=== PATIENT | female | born 1990 | race Caucasian/White ===

== ENCOUNTER 2021-11-04 05:08 | Inpatient (IN) | payer OTHER, SELFPAY ==
[2021-11-04] VITALS (130 sets, daily range): BP systolic 57–158; BP diastolic 43–107; PULSE 58–91; RESP 18; TEMP 36.1–36.6; O2SAT 99–100; BMI 39.3
--- NOTE | 2021-11-04 05:44 | LDADM ---
This patient, Jessica White, was admitted to Labor/Delivery/Recovery 104 on 11/04/21 at 05:08. Plans for labor, pain management and were discussed with patient. Patient/family oriented to hospital policies and general routines including ID bracelet, bed and alarms, visiting hours, pain management, procedures, bathroom and other care routines, personal items, smoking policy, room service/diet and guest tray routines, security routines, and visiting hours. Patient/Family are encouraged to report perceived risks to care and to ask questions if they do not understand what they are told or what they should do. See OBIX for further documentation.
[2021-11-04 06:10] LABS: Basophils Percent Auto 0.5 % (0.2-1.2); Eosinophils Percent Auto 0.4 % (0-4.4); Hematocrit 36.7 % (37.0-47.0); Immature Granulocyte Absolute 0.06 K/mm3 (0.00-0.031); Immature Granulocyte Percent A 0.7 % (0-0.5); Lymphocytes Absolute Auto 2.53 K/mm3 (0.9-3.2); Lymphocytes Percent Auto 30.1 % (18.3-44.2); Mean Corpuscular HGB Conc 35.4 g/dl (32-36); Mean Corpuscular Hemoglobin 32.7 pg (26-34); Mean Corpuscular Volume 92.2 fl (80-100); Mean Platelet Volume 10.5 fl (7.4-10.4); Monocytes Absolute Auto 0.8 K/mm3 (0.1-0.6); Monocytes Percent Auto 8.9 % (2.6-8.5); Neutrophils Percent Auto 59.4 % (45.5-73.1); Platelet Count Result 161 k/mm3 (150-375); Red Blood Count 3.98 M/mm3 (4.2-5.4); Red Cell Distribution Width 13.4 % (11.5-14.5); White Blood Count 8.4 K/mm3 (4.5-10.0)
[2021-11-04] MEDS: LACTATED RINGERS 1,000 ML 125 ML IV CONT ×3 (06:11→14:41)
[2021-11-04] MEDS: OXYTOCIN 30 UNITS/NS 500 ML 30 UNITS/500 ML BAG IV CONT (06:11)
--- NOTE | 2021-11-04 08:46 | WPDOBADMIT ---
Obstetrics - Admit Note Admission Note: record reviewed. Additions to the history and/or subsequent changes in the physical findings follow. 31 y/o at 39 5/7 here for induction of labor. GBS neg. AVSS NST reactive TOCO: contractions every 3-5 min ABD soft, nontender, gravid, vertex EXT nontender Cervix 2-3/50/-2. AROM with clear fluid. A: IUP at term with favorable cervix, desiring induction of labor. P: Oxytocin. Anticipate .
--- NOTE | 2021-11-04 09:01 | WPDANESEPP ---
Anes - Eval Pre Procedure Procedure: labor epidural Date/Time: 11/04/21 09:01 Surgeon: irena Preop Diagnosis: pain during labor Pre Op Diagnosis: Induction Patient Data Age: 31 Gender: F Height: 1.57 m Weight: 97.5 kg Last Vital Signs Temp 36.5 C 11/04/21 08:45 Pulse 69 11/04/21 09:00 BP 133/73 11/04/21 09:00 O2 Del Method Room Air 11/04/21 05:43 Allergies Allergy/AdvReac Type Severity Reaction Status Date / Time amoxicillin Allergy Unknown Verified 02/28/17 14:12 Penicillins Allergy Unknown Verified 02/28/17 14:12 hydrocodone AdvReac Unknown Nausea and Verified 06/02/19 12:10 Vomiting Home Medications Medication Instructions Recorded Confirmed Type vit no.95-ferrous 1 tablet PO DAILY 05/08/19 10/06/21 History fumarate 28 mg-folic acid 800 mcg tablet () cetirizine 10 mg tablet (Zyrtec) 10 mg PO DAILY 10/06/21 10/06/21 History fluoxetine 20 mg tablet 20 mg PO DAILY 10/06/21 10/06/21 History Laboratory Tests 11/04/21 11/04/21 05:58 05:58 WBC 8.4 K/mm3 K/mm3 (4.5-10.0) RBC 3.98 M/mm3 L M/mm3 (4.2-5.4) Hgb 13.0 g/dL g/dL (12.0-15.0) Hct 36.7 % L % (37.0-47.0) MCV 92.2 fl fl (80-100) MCH 32.7 pg pg (26-34) MCHC 35.4 g/dl g/dl (32-36) RDW 13.4 % % (11.5-14.5) Plt Count 161 k/mm3 k/mm3 (150-375) MPV 10.5 fl H fl (7.4-10.4) Immature Gran % (Auto) 0.7 % H % (0-0.5) Neut % (Auto) 59.4 % % (45.5-73.1) Lymph % (Auto) 30.1 % % (18.3-44.2) [place] % (Auto) 8.9 % H % (2.6-8.5) Eos % (Auto) 0.4 % % (0-4.4) Baso % (Auto) 0.5 % % (0.2-1.2) Lymph # (Auto) 2.53 K/mm3 K/mm3 (0.9-3.2) [place] # (Auto) 0.8 K/mm3 H K/mm3 (0.1-0.6) Eos # (Auto) 0.0 K/mm3 K/mm3 (0-0.3) Baso # (Auto) 0.0 K/mm3 K/mm3 (0.0-0.1) Abs Immat Gran (auto) 0.06 K/mm3 H K/mm3 (0.00-0.031) Absolute Neuts (auto) 5.0 K/mm3 K/mm3 (1.3-6.7) Absolute Nucleated RBC 0.0 K/mm3 K/mm3 (0.0-0.012) Nucleated RBC % 0.0 % % (0.0-0.2) RPR Pending Patient hx anesthesia problems: none Family hx anesthesia problems: none Results Review: All pre-operative results and documents have been reviewed as part of the pre-operative evaluation. [facility] Past Medical History Medical History Anxiety Morbid obesity Sphincter of Oddi dysfunction Family History Family History Grandparent Family history of cardiovascular disease Diabetes mellitus Family history of type 1 diabetes mellitus, Onset Age: 74 Family history of type 2 diabetes mellitus Hypertension Sibling Asthma Father Family history of type 2 diabetes mellitus Diabetes mellitus Heart attack Hypertension Mother Diabetes mellitus Social History Social History Smoking status: Never smoker Second hand tobacco smoke exposure: No Alcohol intake: never Substance use: never Gender identity (if verbalized by the patient): Female Spiritual care concerns: No Exam Day of Procedure 11/04/21 09:01
[2021-11-04] MEDS: fentaNYL CITRATE INJ (*CRX) 100 MCG/2 ML VIAL 50 MCG IV PUSH (11:08)
[2021-11-04 11:19] LABS: Rapid Plasma Reagin Non-Reactive (NonReactive)
[2021-11-04] MEDS: ONDANSETRON INJ 4 MG/2 ML VIAL IV PUSH (13:26)
--- NOTE | 2021-11-04 17:19 | PM.OBPNLAB ---
Pain Control Date/time seen: 11/04/21 17:19 Comments: Pain OK with epidural. Pelvic Exam Dilation (cm): 10 station: +2 Contractions Contraction frequency: 3 Contraction pattern: Regular Status status: Category l Assessment and Plan Pitocin rate (mU/min): 20 Comments: Plan to begin pushing.
--- NOTE | 2021-11-04 17:50 | PM.OBPRVD ---
OB - Delivery Note Procedure Delivery date: 11/04/21 Procedure: Induction of labor with Induction method: Per Pitocin Protocol Delivery augmentation: Rupture of Membranes Delivery monitor: External FHT, External Uterine and Internal Uterine Route of delivery: Laceration Description: Perineal - 2nd Degree Delivery repair: vicryl (3-0) Specimen: Yes (Cord blood) Quantitative Blood Loss (ml): 320 Anesthesia type: Epidural Disposition: PACU Complications: None Narrative: 31 y/o at 39 5/7 weeks gestation who presented to the hospital for induction of labor. Oxytocin was administered intravenously. Amniotomy was performed with return of clear fluid. She received an epidural for pain control. Her labor progressed and her cervix dilated completely. She pushed with good effort and delivered the 's head to the perineum, followed by the body. The nose and mouth were bulb suctioned. After a delay, the cord was clamped and cut. The was handed off the field. Cord blood was collected. The placenta delivered spontaneously and was grossly normal in appearance. The usual 3 vessel cord was noted. A second degree midline perineal laceration was sustained. This was reapproximated using 3 0 Vicryl in the usual layered fashion. Excellent hemostasis resulted as did excellent reapproximation of the normal anatomy. Needle and instrument counts were correct. The patient was taken to recovery room in stable condition. The infant went to the nursery in stable condition. I was present and scrubbed for the entire delivery. Baby Date of : 11/04/21 Time of : 17:29 Weeks of gestation at delivery: 39 Infant gender: Female Weight (pounds): 8 Weight (ounces): 14 presentation: vertex position: Left Occiput Anterior Placenta delivery description: Spontaneous and Normal Configuration Cord Vessel Description: 3 Vessels score one minute: 8 score five minutes: 9
--- NOTE | 2021-11-04 17:52 | P.DS_ITS ---
DS: Admitting Diagnosis Discharge Date 11/06/21 Admitting Diagnosis IUP at term with favorable cervix DS: Discharge Diagnosis Discharge Diagnosis (1) (normal spontaneous vaginal delivery): Code(s): O80 - Encounter for full-term uncomplicated delivery Status: Acute OB - DS: Summary OB Procedures : None OB Procedures Intrapartum: Spontaneous Vag Delivery OB Procedures: : None Peripartum Data Infant Delivery Method: Natural Vaginal Laceration Description: Perineal - 2nd Degree Time Spent with Patient Time attestation: Total time spent providing and/or coordinating discharge services: Exam Psych: Other: AVSS ABD soft, nontender, fundus firm EXT nontender DS: Data Data Completed and Pending Labs on day of discharge: Labs from last 24 hours 11/04/21 11/04/21 11/04/21 05:58 05:58 05:58 WBC 8.4 RBC 3.98 L Hgb 13.0 Hct 36.7 L MCV 92.2 MCH 32.7 MCHC 35.4 RDW 13.4 Plt Count 161 MPV 10.5 H Immature Gran % (Auto) 0.7 H Neut % (Auto) 59.4 Lymph % (Auto) 30.1 Elbert % (Auto) 8.9 H Eos % (Auto) 0.4 Baso % (Auto) 0.5 Lymph # (Auto) 2.53 Elbert # (Auto) 0.8 H Eos # (Auto) 0.0 Baso # (Auto) 0.0 Abs Immat Gran (auto) 0.06 H Absolute Neuts (auto) 5.0 Absolute Nucleated RBC 0.0 Nucleated RBC % 0.0 RPR Non-reactive Blood Type A Positive Antibody Screen Negative Discharge Plan Discharge Attending physician on discharge: Gavin Loo Discharging Clinician: Gavin Loo Patient Disposition: Home, Self-Care Activity: pelvic rest Diet: regular Discharge Instructions: Call or return if temperature above 100.4? F, increased abdominal pain, increased vaginal bleeding or any new problems. Stand Alone Forms: General Discharge Information Follow-up/Referrals: Gavin Loo MD [Physician] - 6 Weeks Discharge Medications: New ibuprofen 600 mg tablet 600 mg PO Q6H PRN (Reason: cramps) Qty: 30 0RF Continued cetirizine [Zyrtec] 10 mg Tablet 10 mg PO DAILY fluoxetine 20 mg Tablet 20 mg PO DAILY PNV cmb#95-ferrous fumarate-FA [] 28 mg iron- 800 mcg Tablet 1 tablet PO DAILY Date of admission: 11/04/21 05:08 Primary Care Provider: PHYSICIAN,[employer] Admitting Provider: Gavin Loo Attending physician on admission: Gavin Loo Condition: Stable
[2021-11-04] MEDS: OXYTOCIN 30 UNITS/NS 500 ML 30 UNITS/500 ML BAG 125 UNITS IV CONT (17:55)
[2021-11-04] MEDS: ACETAMINOPHEN 325 MG TABLET 650 MG PO (19:02)
[2021-11-04] MEDS: IBUPROFEN 600 MG TABLET PO (19:02)
[2021-11-05] MEDS: IBUPROFEN 600 MG TABLET PO ×3 (02:14→15:59)
[2021-11-05] MEDS: ACETAMINOPHEN 325 MG TABLET 650 MG PO ×3 (02:15→16:00)
[2021-11-05 03:48] VITALS: BP 125/68; PULSE 62; RESP 18; TEMP 36.4; O2SAT 99
[2021-11-05 04:56] LABS: Hematocrit 32.8 % (37.0-47.0); Hemoglobin 11.4 g/dL (12.0-15.0)
[2021-11-05 08:00] VITALS: BP 117/70; PULSE 77; RESP 16; TEMP 36.6; O2SAT 99
--- NOTE | 2021-11-05 08:34 | PM.OBPNVD ---
OB - PN: Subj Subjective Date/time seen: 11/05/21 08:34 Narrative: Pain OK. OB - PN: Obj Data Labs CBC & Chem 7: 11/05/21 03:05 Labs: Laboratory Results - last 24 hr 11/04/21 11/04/21 11/05/21 05:58 05:58 03:05 Hgb 11.4 L Hct 32.8 L RPR Non-reactive Blood Type A Positive Antibody Screen Negative OB - PN A/P Plan Comments: A: PPD#1, doing well. P: Routine care. Exam Psych: Other: AVSS ABD soft, nontender, fundus firm EXT nontender
[2021-11-05] MEDS: MULTIVIT/MIN/PREN/FOL AC/IRON TABLET 1 TAB PO (09:09)
[2021-11-05] MEDS: DOCUSATE SODIUM 100 MG CAPSULE PO ×2 (09:09→15:59)
[2021-11-05] MEDS: FLUoxetine HCL 20 MG CAPSULE PO (09:14)
--- NOTE | 2021-11-05 09:45 | WPDANLDPN2 ---
Anes-Prog Note L&D Date/Time: 11/05/21 09:45 Comfortable throughout: labor and delivery Neuraxial method: epidural Epidural/Spinal procedure site: clean & non-tender Neuro status: Neuro function grossly intact. Cardiovascular status: normal Respiratory status: normal Airway patency: baseline Mental status: baseline Post-Op hydration status: normal Vital Signs: Last Vital Signs Temp 36.6 C 11/05/21 08:00 Pulse 77 11/05/21 08:00 Resp 16 11/05/21 08:00 BP 117/70 11/05/21 08:00 Pulse Ox 99 11/05/21 08:00 O2 Del Method Room Air 11/05/21 08:00 Pain score (VAS): 06/13 Post-procedural complaints: none Patient feedback: Patient satisfied with anesthetic care.
[2021-11-05 11:30] VITALS: BP 120/79; PULSE 78; RESP 16; TEMP 36.7; O2SAT 99
[2021-11-05 16:00] VITALS: BP 124/76; PULSE 65; RESP 16; TEMP 36.6; O2SAT 100
[2021-11-05 19:36] VITALS: BP 126/76; PULSE 58; RESP 18; TEMP 36.9; O2SAT 99
[2021-11-06] MEDS: IBUPROFEN 600 MG TABLET PO ×2 (01:24→08:51)
[2021-11-06] MEDS: ACETAMINOPHEN 325 MG TABLET 650 MG PO ×2 (01:24→08:52)
[2021-11-06 08:00] VITALS: BP 115/62; PULSE 57; RESP 16; TEMP 36.8; O2SAT 98
[2021-11-06] MEDS: MULTIVIT/MIN/PREN/FOL AC/IRON TABLET 1 TAB PO (08:52)
[2021-11-06] MEDS: FLUoxetine HCL 20 MG CAPSULE PO (08:52)
[2021-11-06] MEDS: DOCUSATE SODIUM 100 MG CAPSULE PO (08:52)
--- NOTE | 2021-11-06 09:43 | PM.OBPNVD ---
OB - PN: Subj Subjective Date/time seen: 11/06/21 09:43 Narrative: Pain OK. Would like to go home. OB - PN: Obj Data Labs CBC & Chem 7: 11/05/21 03:05 OB - PN A/P Plan Comments: A: PPD#2, doing well. P: Home to f/u 6 weeks. Exam Psych: Other: AVSS ABD soft, nontender, fundus firm EXT nontender
--- NOTE | 2021-11-06 10:39 | PC.NURSE ---
Patient was given the opportunity to view the discharge video Mother & Baby Care, The First Two Weeks and to ask questions. Patient declined viewing the video and has been given the mother/baby guide for home reference.
[2021-11-07 08:00] VITALS: BP 126/67; PULSE 62; RESP 20; TEMP 37; O2SAT 98
== END 2021-11-06 12:15 | disposition home or self-care (01) | DRG 807 ==
LOC: ANHLDR 17:53 → ANHOB2 21:28
PROVIDERS: Admitting Provider Obstetrics & Gynecology; Visit Provider Obstetrics & Gynecology
DX: O70.1 Second degree perineal laceration during delivery (principal); Z37.0 Single live birth; Z3A.39 39 weeks gestation of pregnancy
CPT/HCPCS: 36415; 85014; 85018; 85025; 86592; 86850; 86900; 86901; A9270; J2405; J2590; J2795; J3010; J7120

== ENCOUNTER 2021-11-11 10:04 | Emergency (ER) | payer OTHER, SELFPAY ==
--- NOTE | ~2021-11-11 | US_ITS ---
EXAMINATION: US venous doppler [facility] DATE: 11/11/2021 11:13 INDICATION: Calf pain. TECHNIQUE: Grayscale ultrasound images without and with compression and Doppler ultrasound images of the bilateral lower extremity veins were obtained. COMPARISON: None. FINDINGS: The visualized portions of right common femoral vein, profunda (deep) femoral vein, femoral vein, pop liteal vein, peroneal veins, posterior tibial veins, and greater saphenous vein outflow are patent. The visualized portions of left common femoral vein, profunda femoral vein, femoral vein, popliteal v ein, peroneal veins, posterior tibial veins, and greater saphenous vein outflow are patent. IMPRESSION: 1. No deep venous thrombosis. Reviewed, dictated and finalized at location A.
[2021-11-11 10:09] VITALS: BP 127/73; PULSE 116; RESP 15; TEMP 36.6; O2SAT 98
[2021-11-11 10:19] VITALS: BP 125/74; PULSE 116; RESP 20; O2SAT 96
[2021-11-11 10:22] VITALS: PULSE 117
--- NOTE | 2021-11-11 10:34 | ECG_ITS ---
Measurements Intervals [place] Rate: 104 P: 78 NH: 150 QRS: 70 QRSD: 86 T: 5 QT: 308 QTc: 407 Interpretive Statements SINUS TACHYCARDIA OTHERWISE WITHIN NORMAL LIMITS NO PREVIOUS ECG AVAILABLE FOR COMPARISON Electronically Signed On 11-11-2021 14:13:01 CDT by Mookie Bragg M.D.
--- NOTE | 2021-11-11 10:47 | ED.GENADULT ---
HPI - General Adult General Chief complaint: Unspecified Stated complaint: bilat. calf pain, R sided breast pain w/ streaking Time Seen by Provider: 11/11/21 10:16 Source: patient, RN notes reviewed and old records reviewed Mode of arrival: ambulatory Limitations: no limitations History of Present Illness HPI narrative: This is a 31 year old female who is 7 days presents for evaluation of bilateral calf pain and mastitis. Patient developed bilateral calf pain yesterday. She thinks it might be due to her having right breast mastitis as well. She was sent to ER by Dr Loo to rule out DVT per patient. She denies leg swelling, chest pain or shortness of breath. She denies history of DVT or PE. She reports right nipple , breast pain for 2 days. She also notes cracking to her nipple and mild red streaking to her breast. Related Data Home Medications Medication Instructions Recorded Confirmed vit no.95-ferrous 1 tablet PO DAILY 05/08/19 11/11/21 fumarate 28 mg-folic acid 800 mcg tablet () cetirizine 10 mg tablet (Zyrtec) 10 mg PO DAILY 10/06/21 11/11/21 fluoxetine 20 mg tablet 20 mg PO DAILY 10/06/21 11/11/21 Allergies Allergy/AdvReac Type Severity Reaction Status Date / Time amoxicillin Allergy Unknown Verified 02/28/17 14:12 Penicillins Allergy Unknown Verified 02/28/17 14:12 hydrocodone AdvReac Unknown Nausea and Verified 06/02/19 12:10 Vomiting Review of Systems Review of Systems: All systems reviewed & are unremarkable except as noted in HPI and below Constitutional: Constitutional: Denies chills and Denies fever(s) ENT: Denies nasal congestion Cardiovascular: Cardiovascular: Denies chest pain at rest and Denies chest pain with activity Respiratory: Respiratory: Denies chest congestion, Denies cough and Denies dyspnea Gastrointestinal: Gastrointestinal: Denies abdominal pain, Denies belching, Denies nausea and Denies vomiting Genitourinary: Comments: vaginal bleeding present Musculoskeletal: Musculoskeletal: Denies back pain, Reports muscle cramps and Denies numbness Integumentary/Breasts: Skin/Breast: Reports breast pain and Reports change in pigmentation Psychiatric: Psychiatric: Denies anxiety and Denies depression PMFSH Past Medical History Medical History (Updated 11/11/21 @ 13:20 by Eileen Neff MD) Anxiety Morbid obesity Sphincter of Oddi dysfunction Family History Family History Grandparent Family history of cardiovascular disease Diabetes mellitus Family history of type 1 diabetes mellitus, Onset Age: 74 Family history of type 2 diabetes mellitus Hypertension Sibling Asthma Father Family history of type 2 diabetes mellitus Diabetes mellitus Heart attack Hypertension Mother Diabetes mellitus Social History Social History Smoking status: Never smoker Second hand tobacco smoke exposure: No Alcohol intake: never Substance use: never Gender identity (if verbalized by the patient): Female Spiritual care concerns: No Exam Narrative: GENERAL: Well-appearing, well-nourished, and in no acute distress. HEAD: Normocephalic, atraumatic EYES: EOMI, conjunctiva clear without discharge NECK: Supple, without lymphadenopathy or mass RESPIRATORY: No respiratory distress, Airway patent, Respirations non-labored, Clear to auscultation without rales, rhonchi or wheeze HEART: tachycardic rate and regular rhythm. No murmur heard. Normal peripheral pulses. ABDOMEN: Soft, nontender, nondistended, normal active bowel sounds. No masses. No rebound or guarding, No organomegaly. EXTREMITIES: No edema, normal strength with full range of motion. bilateral focal calf tender SKIN: Warm, dry, normal color without rash NEURO: Alert and oriented x3. CN 2-12 grossly intact. No focal deficits. PSYCH: N
[2021-11-11 10:49] LABS: Basophils Absolute Auto 0.1 K/mm3 (0.0-0.1); Basophils Percent Auto 0.3 % (0.2-1.2); Hematocrit 39.9 % (37.0-47.0); Hemoglobin 13.3 g/dL (12.0-15.0); Immature Granulocyte Absolute 0.18 K/mm3 (0.00-0.031); Immature Granulocyte Percent A 0.8 % (0-0.5); Lymphocytes Absolute Auto 0.36 K/mm3 (0.9-3.2); Lymphocytes Percent Auto 1.5 % (18.3-44.2); Mean Corpuscular HGB Conc 33.3 g/dl (32-36); Mean Corpuscular Hemoglobin 31.7 pg (26-34); Monocytes Absolute Auto 1.6 K/mm3 (0.1-0.6); Monocytes Percent Auto 6.9 % (2.6-8.5); Neutrophils Absolute Auto 21.5 K/mm3 (1.3-6.7); Neutrophils Percent Auto 90.5 % (45.5-73.1); Platelet Count Result 230 k/mm3 (150-375); Red Cell Distribution Width 13.2 % (11.5-14.5)
[2021-11-11 11:08] LABS: Lactic Acid Reflex 2.9 mmol/L (0.7-2.0)
[2021-11-11 11:09] LABS: Alanine Aminotransferase 32 U/L (6-35); Alkaline Phosphatase 99 U/L (38-126); Anion Gap 8 mmol/L (8-16); Aspartate Amino Transferase 29 U/L (14-36); Bilirubin,Total 0.4 mg/dL (0.2-1.3); Blood Urea Nitrogen 11 mg/dL (7-17); Calcium 8.8 mg/dL (8.4-10.2); Carbon Dioxide 21 mmol/L (22-30); Chloride 106 mmol/L (98-107); Estimated Glomerular Filt Rate 58; Glucose 108 mg/dL (65-110); Potassium 3.7 mmol/L (3.4-5.0); Sodium 135 mmol/L (137-145)
[2021-11-11 11:10] LABS: Prothrombin Time 12.4 Seconds (11.1-14.7)
[2021-11-11 11:11] LABS: Partial Thromboplastin Time 29.4 SECONDS (22.3-36.8)
[2021-11-11 11:25] LABS: Platelet Clumps Present; Platelet Estimate Adequate (Adequate)
[2021-11-11 11:26] LABS: White Blood Count 23.7 K/mm3 (4.5-10.0)
[2021-11-11 11:38] VITALS: BP 118/70; PULSE 80; RESP 16; TEMP 36.3; O2SAT 100
[2021-11-11] MEDS: SODIUM CHLORIDE 0.9% IV 1,000 ML 999 ML IV CONT (11:53)
[2021-11-11 12:30] VITALS: BP 124/80; PULSE 88; RESP 16; TEMP 36.8; O2SAT 98
[2021-11-11 13:36] VITALS: BP 126/74; PULSE 86; RESP 16; TEMP 37.1; O2SAT 98
[2021-11-11 13:46] LABS: Reflex Lactic Acid Yes or No Add Lactic
== END 2021-11-11 13:37 | disposition home or self-care (01) ==
PROVIDERS: Emergency Provider General Practice; PCP Family Medicine Sports Medicine
DX: O85 Puerperal sepsis (principal); O91.22 Nonpurulent mastitis associated with the puerperium; O90.89 Other complications of the puerperium, not elsewhere classified; M79.662 Pain in left lower leg; M79.661 Pain in right lower leg; O99.345 Other mental disorders complicating the puerperium; F41.9 Anxiety disorder, unspecified; O99.215 Obesity complicating the puerperium; E66.01 Morbid (severe) obesity due to excess calories; O99.893 Other specified diseases and conditions complicating puerperium; R00.0 Tachycardia, unspecified
CPT/HCPCS: 36415; 80053; 83605; 85025; 85610; 85730; 93005; 93970; 96361; 96365; 96367; 99284; J0131; J0690; J7030